=== PATIENT | female | born 1985 | race African-American/Black ===

== ENCOUNTER 2024-04-29 18:49 | Emergency (ER) | payer BC ==
[~2024-04-29] VITALS: Ht 162.6 cm; Wt 95.3 kg
[2024-04-29 19:17] LABS: BASOPHILS % (AUTO) 0.5 % (0.0-2.0); EOSINOPHILS # (AUTO) 0.1 K/uL (0.0-0.7); HEMATOCRIT 37.7 % (31.2-41.9); HEMOGLOBIN 13.1 g/dL (10.9-14.3); LYMPHOCYTES # (AUTO) 2.1 K/uL (0.8-4.8); LYMPHOCYTES % (AUTO) 21.7 % (20.5-51.5); MEAN CORPUSCULAR HGB CONC 35 g/dL (32.3-35.6); MEAN CORPUSCULAR VOLUME 91.8 fL (75.5-95.3); MONOCYTES # (AUTO) 0.7 K/uL (0.1-1.30); MONOCYTES % (AUTO) 7.4 % (0.0-11.0); NEUTROPHILS # (AUTO) 6.8 K/uL (1.8-8.9); NEUTROPHILS % (AUTO) 69.4 % (38.5-71.5); PLATELET COUNT (AUTO) 385 K/uL (179-408); RED BLOOD CELL COUNT(AUTO) 4.11 MIL/uL (3.63-4.92); RED CELL DISTRIBUTION WIDTH 14.2 % (12.3-17.7); WHITE BLOOD COUNT (AUTO) 9.8 K/uL (3.8-11.8)
[2024-04-29 19:20] LABS: DIFFERENTIAL COMMENT 1
[2024-04-29 19:25] LABS: CARBON DIOXIDE 33 mmol/L (21-32); CHLORIDE 96 mmol/L (98-107); CREATININE 0.8 mg/dL (0.6-1.3); GLUCOSE 115 mg/dL (74-106); POTASSIUM 3.1 mmol/L (3.5-5.1); SODIUM SERUM 135 mmol/L (136-145); UREA NITROGEN, BLOOD 6 mg/dL (7-18)
[2024-04-29 19:30] LABS: ETHANOL < 3 MG/DL (0-10)
[2024-04-29 19:37] LABS: ALANINE AMINOTRANSFERASE 219 U/L (14-59); ALBUMIN 3.6 g/dL (3.4-5.0); ALKALINE PHOSPHATASE 66 U/L (50-136); ASPARTATE AMINOTRANSFERASE 175 U/L (15-37); BILIRUBIN,TOTAL 0.3 mg/dL (0.2-1.0); CALCIUM 9.4 mg/dL (8.5-10.1); NT-PRO BNP 10 pg/mL (0-125); TOTAL PROTEIN, SERUM 8.2 g/dL (6.4-8.2)
[2024-04-29] MEDS ORDERED: POTASSIUM CHLORIDE 50 ML ONE (19:41)
[2024-04-29] MEDS: POTASSIUM CHLORIDE 50 ML IV SCH (19:46)
[2024-04-29] MEDS ORDERED: MAGNESIUM SULFATE/D5W 200 ML ONE (20:47)
[2024-04-29] MEDS: MAGNESIUM SULFATE/D5W 100 ML IV SCH (20:48)
[2024-04-29] MEDS ORDERED: POTA10CA43 PO (20:51)
[2024-04-29] MEDS ORDERED: PANT20TA2 PO (21:14)
[2024-04-29] MEDS ORDERED: MAG HYDROX/AL HYDROX/SIMETH 30 ML LIQUID UDC ONE (21:22)
[2024-04-29] MEDS: MAG HYDROX/AL HYDROX/SIMETH 30 ML LIQUID UDC PO ONE (21:31)
[2024-04-29 23:14] VITALS: BP 124/80; O2SAT 99
== END 2024-04-29 23:16 | disposition home or self-care (01) ==
LOC: ER 18:49
DX: R07.89 Other chest pain (principal); R06.02 Shortness of breath; F17.290 Nicotine dependence, other tobacco product, uncomplicated; Z79.899 Other long term (current) drug therapy
CPT/HCPCS: 80053; 83880; 83735; 85025; 84484 ×2; 36415; 71045; 99284; 96365; 96366; 96368; 80320; J3475; J3480; A4606; A4663; G0480

== ENCOUNTER 2024-07-18 16:41 | Emergency (ER) | payer BC ==
[~2024-07-18] VITALS: Ht 165.1 cm; Wt 97.5 kg
[~2024-07-18 16:41] MED LIST: PANT20TA2 PO; POTA10CA43 PO
[2024-07-18 17:07] VITALS: O2SAT 99
== END 2024-07-18 19:18 | disposition left against medical advice (07) ==
LOC: ER 17:01
DX: R07.9 Chest pain, unspecified (principal); Z53.21 Procedure and treatment not carried out due to patient leaving prior to being seen by health care provider
CPT/HCPCS: A4606; A4663

== ENCOUNTER 2024-10-21 17:30 | Emergency (ER) | payer BC ==
[~2024-10-21] VITALS: Ht 162.6 cm; Wt 94.8 kg
[2024-10-21 17:33] VITALS: BP 130/99
[2024-10-21 18:11] LABS: PLATELET COUNT (AUTO) 352 K/uL (179-408); RED BLOOD CELL COUNT(AUTO) 3.95 MIL/uL (3.63-4.92); RED CELL DISTRIBUTION WIDTH 15.3 % (12.3-17.7); WHITE BLOOD COUNT (AUTO) 7.0 K/uL (3.8-11.8)
[2024-10-21 18:22] LABS: CREATININE 0.6 mg/dL (0.6-1.3); SODIUM SERUM 150 mmol/L (136-145); UREA NITROGEN, BLOOD 7 mg/dL (7-18)
[2024-10-21 18:23] LABS: ETHANOL 258.0 MG/DL (0-10)
[2024-10-21 18:28] LABS: ASPARTATE AMINOTRANSFERASE 30 U/L (15-37); TOTAL PROTEIN, SERUM 8.0 g/dL (6.4-8.2)
[2024-10-21 18:34] LABS: NT-PRO BNP 28.0 pg/mL (0-125)
[2024-10-21] MEDS ORDERED: CHLO25CA22 PO (18:59)
[2024-10-21] MEDS ORDERED: CHLORDIAZEPOXIDE HCL 25 MG CAPSULE ONE (19:14)
[2024-10-21] MEDS: CHLORDIAZEPOXIDE HCL 25 MG CAPSULE PO ONE (19:14)
[2024-10-21 19:26] VITALS: BP 130/99; TEMP 98.3; O2SAT 97
== END 2024-10-21 19:26 | disposition home or self-care (01) ==
LOC: ER 17:39
DX: R00.2 Palpitations (principal); R07.9 Chest pain, unspecified; F41.9 Anxiety disorder, unspecified; F10.939 Alcohol use, unspecified with withdrawal, unspecified; F12.90 Cannabis use, unspecified, uncomplicated; R10.2 Pelvic and perineal pain; F17.290 Nicotine dependence, other tobacco product, uncomplicated; Z79.899 Other long term (current) drug therapy; Z20.822 Contact with and (suspected) exposure to COVID-19; Y90.9 Presence of alcohol in blood, level not specified
CPT/HCPCS: 36415; 71045; 84484; 85025; 85730; A4606; A4663; G0480